=== PATIENT | female | born 1960 | race Caucasian/White ===

== ENCOUNTER 2017-07-17 07:02 | Emergency (ER) | payer BC ==
--- NOTE | ~2017-07-17 | CT4 ---
[facility] A Service of [facility] RADIOLOGY TEXT RESULTS PATIENT: DANAE RAJAN LOCATION: SED : 58 UNIT #: [id number] AGE: [address]: Al Pak MD SEX: F ORDER DR: [id number] [address] [address] [id number] E MR#: [id number] #: [id number] NAME: DANAE RAJAN : 1960 SEX: F STUDY DATE/TIME: 07/17/2017 8:11 UNIT: SED ROOM: STUDY DESCRIPTION: CT Abd and Pelv Wo Cont Attending Physician: Al Pak M.D. Ordering Physician: Al Pak M.D. Primary Care Physician: Primary Care Physician No MEDICAL IMAGING REPORT This report is preliminary unless electronic signature is present. EXAM CT abdomen and pelvis without IV contrast COMPARISON None INDICATION 56-year-old female with sharp left-sided abdominal pain and nausea for [address] exam was performed with one or more of the following radiation dose reduction techniques: automatic exposure control, adjustment of mA and/or kV according to patient size, and iterative reconstruction. FINDINGS Axial CT imaging of the abdomen and pelvis was performed without IV contrast. Lack of IV contrast limits evaluation of adenopathy, vasculature and viscera. Coronal and sagittal reformats were constructed. Tiny fat-containing umbilical hernia. 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 Degenerative disc height loss and degenerative endplate change at L5-S1 with vacuum phenomenon is also noted. There is a small posterior disc protrusion at this level. Also small posterior protrusions at L2-L3 through L4-L5. There is moderate to severe bony neural foraminal narrowing on the left at L5-S1 primarily due to disc osteophyte complex and degenerative facet disease. No acute findings in the imaged lower chest. Unenhanced liver, gallbladder, pancreas, spleen, adrenal glands are unremarkable. At least one nonobstructive calculus in the right kidney. [facility] A Service of [facility] RADIOLOGY TEXT RESULTS PATIENT: DANAE RAJAN LOCATION: [facility] [place] : 58 UNIT #: [id number] AGE: [address]: Al Pak MD SEX: F ORDER DR: Bilateral pelvic phleboliths. No left-sided renal calculi. No ureteral calculi. Urinary bladder and uterus are unremarkable. No definite adnexal masses. No evidence of bowel obstruction. No free fluid or pneumoperitoneum. Abdominal aorta is normal in caliber. No evidence of adenopathy. Appendix is normal. IMPRESSION 1. No acute abnormality in the abdomen, pelvis or imaged lower chest. 2. Nonobstructive right renal calculus. There are no left-sided renal calculi. No ureteral calculus. 3. Multilevel posterior disc protrusions of the lumbar spine. There is also posterior disc osteophyte complex and degenerative facet hypertrophy on the left at L5-S1 which is causing moderate to severe bony neural foraminal narrowing. Correlation for possible radiculopathy is recommended. Dictated by... Navin Conde M.D. THIS IS AN ELECTRONICALLY VERIFIED REPORT Navin Conde M.D. at 07/19/2017 10:02 PM Maritza TD: 07/17/2017 13:22 JOB #: [id number] MEDICAL IMAGING REPORT Page 1 of 1
[2017-07-17] MEDS ORDERED: MULTIVITAMINS1 EAC3 PO (07:12)
[2017-07-17] MEDS ORDERED: HAIR SKIN NAIL1 EACH PO (07:12)
[2017-07-17] MEDS ORDERED: VITAMIN D400 UNI2 PO (07:12)
[2017-07-17 08:20] LABS: BASOPHIL% 0.4 % (0-2.5); EOSINOPHIL# 0.1 X10e3 (0-0.7); EOSINOPHIL% 0.8 % (0.0-7.0); HEMATOCRIT 40.3 % (35.0-45.0); HEMOGLOBIN 13.9 gm/dL (12.0-16.0); LYMPHOCYTE# 1.3 X10e3 (1.0-3.5); LYMPHOCYTE% 13.5 % (17.0-45.0); MEAN CELL VOLUME 90.1 FL (83-96); MEAN CORPUSCULAR HGB CONC 34.4 g/dL (30-36); MEAN PLATELET VOLUME 8.6 FL (6.5-11.5); MONOCYTE# 0.4 X10e3 (0-1.0); NEUTROPHIL# 8.1 X10e3 (1.5-7.1); NEUTROPHIL% 81.3 % (40-75); PLATELET COUNT 251 X10e3 (140-420); RED BLOOD COUNT 4.47 X10e (3.90-5.30); RED CELL DISTRIBUTION WIDTH 13.3 % (11.0-15.5); WHITE BLOOD COUNT 9.9 X10e3 (4.0-10.5)
[2017-07-17 08:22] LABS: URINE APPEARANCE CLOUDY; URINE BILIRUBIN NEG (NEG); URINE BLOOD NEG (NEG); URINE COLOR YELLOW; URINE GLUCOSE NEG (NORM); URINE KETONE NEG (NEG); URINE LEUKOCYTE ESTERASE NEG (NEG); URINE NITRATE NEG (NEG); URINE PROTEIN NEG (NEG); URINE SPECIFIC GRAVITY 1.015 (1.003-1.035); URINE UROBILINOGEN 0.2 MG/DL (NORM)
[2017-07-17 08:23] LABS: MICRO INDICATED? NO; URINE SOURCE CLEAN CATCH
[2017-07-17 08:27] LABS: DIFF IND NO
[2017-07-17 08:39] LABS: CALCIUM SERUM 9.3 mg/dL (8.4-10.2); CREATININE SERUM 0.8 mg/dL (0.6-1.4); GLOM FILT RATE Estimated 81.9 mL/min (>60); POTASSIUM 3.7 mmol/L (3.5-5.1)
== END 2017-07-17 09:28 | disposition home or self-care (01) ==
LOC: SED 07:02
PROVIDERS: Emergency Medicine
DX: M54.5 Low back pain (principal); R10.9 Unspecified abdominal pain; Z98.51 Tubal ligation status; Z79.899 Other long term (current) drug therapy
CPT/HCPCS: 36415; 74176; 80048; 81003; 85025; 96374; 96375; 99284; J2270; J2405